=== PATIENT | female | born 1995 | race Caucasian/White ===

== ENCOUNTER 2016-11-22 06:45 | Day surgery (SDC) | payer BC ==
[2016-11-22] MEDS ORDERED: Lactated Ringers 1,000 ML IV SCH (07:30)
[2016-11-22] MEDS ORDERED: Lidocaine 2% 100 MG/5 ML Syringe IVPUSH ONE (08:45)
[2016-11-22] MEDS ORDERED: fentaNYL 100 MCG/2 ML SDV IV ONE (08:45)
[2016-11-22] MEDS ORDERED: Midazolam 1 MG/ML 2 ML SDV IV ONE (08:45)
[2016-11-22] MEDS ORDERED: Propofol 200 MG/20 ML SDV IV ONE (08:45)
--- NOTE | 2016-11-22 09:22 | PCM.OPNOTE ---
- General Post-Op/Procedure Note Date of Surgery/Procedure: 11/22/16 Operative Procedure(s): egd with bx. c scope Findings: esophagitis internal hemorrhoids Pre Op Diagnosis: gerd. bleeding per rectum Post-Op Diagnosis: esophagitis. internal hemorrhoids Anesthesia Technique: MAC Primary Surgeon: Semaj Chicas Anesthesia Provider: Kerry Chand Pathology: distal esophagus Complications: None Condition: Good Free Text/Narrative:: see dictation
[2016-11-22 11:34] VITALS: BP 107/71
--- NOTE | 2016-11-22 13:59 | OR ---
DATE OF OPERATION: 11/22/2016 SURGEON: Semaj Chicas MD PROCEDURE PERFORMED: Esophagogastroduodenoscopy with cold forceps biopsy and colonoscopy. PREOPERATIVE DIAGNOSIS: History of gastroesophageal reflux disease and bright red blood per rectum. POSTOPERATIVE DIAGNOSES: Esophagitis and internal hemorrhoids. INDICATIONS FOR PROCEDURE: This is a 20-year-old white female, who was referred with the above-mentioned complaints. She was offered and accepted an upper and lower endoscopy. DESCRIPTION OF OPERATION: After an excellent IV sedation was administered, the bite block was inserted. The flexible endoscope was passed without difficulty down the patient's esophagus into the stomach. The stomach was insufflated and scope was passed through the pylorus to the second portion of duodenum and slowly withdrawn. The following findings were noted. Duodenum is unremarkable. Stomach is unremarkable. GE junction measured approximately 40 cm and the distal 1/3 of the esophagus appeared to be inflamed. Multiple biopsies were taken. The remainder of the esophageal exam was unremarkable. Attention was then turned to the patient's colon. Digital rectal exam was performed. No marked abnormality was noted. Flexible colonoscope was inserted and advanced to the cecum without difficulty. Prep was excellent. The following findings were noted. Ascending colon, unremarkable. Transverse colon, unremarkable. Descending colon, unremarkable. Sigmoid and rectum, on retroflexing the scope, there were some evidence of internal hemorrhoids which is presumed cause of bleeding. The patient was taken to recovery room in good condition having tolerated the procedure well. /[id number] /MODL
== END 2016-11-22 10:30 | disposition home or self-care (01) ==
LOC: FB.SDS 06:45
PROVIDERS: ATTEND Surgery
DX: K20.9 Esophagitis, unspecified (principal); K64.8 Other hemorrhoids; Z79.899 Other long term (current) drug therapy; Z79.2 Long term (current) use of antibiotics
CPT/HCPCS: 43239; 45378; 81025; J2250; J2704; J3010; J7120; 88305; 88313